=== PATIENT | female | born 1945 | race Caucasian/White ===

== ENCOUNTER 2016-11-13 15:58 | Observation (INO) ==
--- NOTE | 2016-11-13 16:28 | Emergency Department Note ---
Disposition Clinical Impression: Congestive heart failure, Elevated troponin Disposition: Admitted As Inpatient SOB HPI - General Chief Complaint: ED Shortness of Breath/Dyspnea Stated Complaint: Possible Pneumonia r/o Time Seen by Provider: 11/13/16 16:15 Source: patient Mode of arrival: wheelchair Limitations: no limitations, age Nursing Notes Reviewed: Yes Vital Signs Reviewed: Yes - History of Present Illness Patient presents with 7 hour history of chest pain midsternal in nature when she takes a deep breath with no radiation no shortness of breath cough fever or chills Pt Subjective Complaint: shortness of breath Onset (ago): hour(s) (7) Context: recent illness Severity: mild Consistency/Duration: constant Improves with: nothing Worsens with: nothing Cough present: No - Related Data Home Medications Medication Instructions Recorded Confirmed Albuterol Sulfate [Albuterol 2 puff IH Q4HR PRN 11/04/14 09/14/16 Inhaler] Budesonide/Formoterol 160/4.5 2 puff IH BIDR 11/04/14 09/14/16 [Symbicort 160/4.5] Duloxetine HCl [Cymbalta] 60 mg PO DAILY 11/04/14 09/14/16 Gabapentin [Neurontin] 300 mg PO TID 11/04/14 09/14/16 Nitroglycerin [Nitrostat] 0.4 mg SL Q5M PRN 11/04/14 09/14/16 Fenofibrate Nanocrystallized 145 mg PO DAILY 08/12/15 09/14/16 [Tricor] Omeprazole [PriLOSEC] 40 mg PO BID 10/08/15 09/14/16 Lisinopril [Zestril] 20 mg PO BID 09/11/16 09/14/16 Metoprolol XL (24 HR) Succ [Toprol 50 mg PO DAILY 09/11/16 09/14/16 Xl] Oxycodone HCl [Oxaydo] 5 mg PO Q6H PRN 09/14/16 09/14/16 Previous Rx's Medication Instructions Recorded Aspirin 81 mg PO DAILY #30 tab.chew 06/26/15 Atorvastatin [Lipitor] 40 mg PO HS #30 tablet 06/26/15 Acetaminophen [8 Hour] 650 mg PO Q8H PRN #30 tablet.er 09/12/16 HYDROcodone/Acet 5/325 mg [[place] 1 tab PO Q4HR PRN #14 tab 09/12/16 5-325 mg] Isosorbide MONOnitrate (24 HR) 30 mg PO DAILY #30 tab 09/15/16 [Imdur] Lidocaine Patch [Lidoderm 5% patch] 1 each TP DAILY #30 patch 09/15/16 Nicotine Patch [Nicoderm] 21 mg TD DAILY #30 patch 09/15/16 amLODIPine [Norvasc] 10 mg PO DAILY #60 tab 09/15/16 predniSONE [PredniSONE] 40 mg PO DAILY #4 tablet 09/15/16 Allergies Allergy/AdvReac Type Severity Reaction Status Date / Time Erythromycin Base Allergy Vomiting Verified 11/13/16 18:58 Penicillins [PCN] Allergy Rash Verified 11/13/16 18:58 codeine AdvReac Nausea Verified 11/13/16 18:58 indapamide [From Lozol] AdvReac See Verified 11/13/16 18:58 Comments All systems ED: reviewed and negative except as stated. Review of Systems: As Per HPI Constitutional: Denies: fever, chills, weakness, weight change Eyes: Denies: eye pain, eye discharge, vision change ENT ED: Denies: ear pain, throat pain, dental pain, hearing loss, epistaxis, congestion, dysphagia Cardiovascular: Denies: chest pain, palpitations, dyspnea on exertion, edema, syncope Respiratory: Reports: cough, dyspnea, wheezes Gastrointestinal: Denies: abdominal pain, nausea, vomiting, diarrhea, constipation, hematemesis, melena, hematochezia Genitourinary: Denies: dysuria, frequency, hematuria, discharge Musculoskeletal: Denies: back pain, neck pain, arthralgia, myalgia Integumentary: Denies: rash, abrasion, lesions Neurological: Denies: headache, weakness, numbness, paresthesias, confusion, abnormal gait, vertigo Psychiatric: Denies: anxiety, depression, suicidal thoughts, homicidal thoughts , auditory hallucinations, visual hallucinations Endocrine: Denies: fatigue Past Medical History - Past Medical History Source: patient, nursing notes reviewed Medical history: Reports: cardiomyopathy, COPD, coronary artery disease, diabetes, GERD, GI bleed, hyperlipidemia, hypertension, myocardial infarction, peripheral artery disease, renal disease Surgical history: Reports: angioplasty/stent, appendectomy, hysterectomy, orthopedic, other Psychiatric history: Reports: depression ISSUING OPERATOR history: Reports: no ISSUING OPERATOR history - Social History Smoking Status: Current every day smoker Smokeless Tobacco Status: No Alcohol use: Reports: none Drug use: Reports: none Physical Exam - General Limitations: age General appearance: alert - Head Head exam: atraumatic, normocephalic, normal inspection - Eye Eye exam: Present: normal appearance, PERRL, EOMI - ENT ENT exam: normal exam, normal oropharynx, mucous membranes moist - Neck Neck exam: Present: normal inspection, full ROM, trachea midline - Chest Chest inspection: Present: normal inspection, symmetric chest wall rise - Respiratory Respiratory exam: Present: wheezes, other (Rhonchi and a loose cough noted.). Absent: normal lung sounds bilaterally, respiratory distress, accessory muscle use, prolonged expiratory phase - Cardiovascular Cardiovascular exam: Present: regular rate, normal rhythm, normal heart sounds - Abdominal Exam Abdominal exam: Present: soft - Extremities Exam Extremities exam: Present: normal inspection - Back Exam Back exam: Present: normal inspection - Neurological Exam Neurological exam: Present: alert, oriented X3 - Psychiatric Psychiatric exam: Present: normal affect, normal mood - Skin Skin exam: Present: warm, dry, intact Course Vital Signs Temperature 99 F 11/13/16 16:00 Pulse Rate 96 11/13/16 16:00 Respiratory Rate 20 11/13/16 16:00 Blood Pressure 167/101 11/13/16 16:00 O2 Sat by Pulse Oximetry 100 11/13/16 16:00 Temperature 98.4 F 11/13/16 18:58 Pulse Rate 98 11/13/16 18:58 Respiratory Rate 18 11/13/16 18:58 Blood Pressure 179/97 11/13/16 18:58 O2 Sat by Pulse Oximetry 100 11/13/16 18:58 Oxygen Delivery Oxygen Delivery Room Air Shortness of Breath/Dyspnea - Lab Data Result diagrams: 11/13/16 16:51 11/13/16 16:51 Lab Results 11/13/16 11/13/16 11/13/16 Range/Units 16:51 16:51 16:51 WBC 9.0 (4.3-11.1) K/mcL RBC 3.40 L (3.82-4.97) M/mcL Hgb 9.1 L (11.5-15.4) g/dL Hct 27.7 L (35.3-44.9) % MCV 81.5 L D (83.0-100.0) fL MCH 26.8 L (28.0-33.3) pg MCHC 32.9 (31.6-35.5) g/dL RDW 14.5 (11.5-14.5) % Plt Count 326 (140-400) K/mcL MPV 10.3 (9.4-12.4) fL VBG Lactic Acid (0.5-2.2) mmol/L Sodium 139 (136-145) mEq/L Potassium 3.7 (3.5-4.5) mEq/L Chloride 107 (98-109) mEq/L Carbon Dioxide 20 (19-29) mEq/L BUN 24 H (7-20) mg/dL Creatinine 1.90 H (0.57-1.11) mg/dL Est GFR ( Amer) 32 L (> 60) Est GFR (Non-Af Amer) 26 L (> 60) BUN/Creatinine Ratio 13 (6-26) Glucose 118 H (70-99) mg/dL POC Glucose (58-89) Calculated Osmolality 293 (280-300) Calcium 9.1 (8.6-10.8) mg/dL Total Bilirubin 0.4 (0.2-1.2) mg/dL AST 14 (5-34) Units/L ALT 7 (0-55) Units/L Alkaline Phosphatase 123 (38-126) Units/L Troponin I (0-0.03) ng/mL B-Natriuretic Peptide 2460 H (0-100) pg/mL Serum Total Protein 6.5 (6.0-8.3) g/dL Albumin 2.8 L (3.5-5.0) g/dL Globulin 3.7 H (2.4-3.5) g/dL Albumin/Globulin Ratio 0.8 L (1.1-2.2) 11/13/16 11/13/16 11/13/16 Range/Units 16:51 16:51 18:27 WBC (4.3-11.1) K/mcL RBC (3.82-4.97) M/mcL Hgb (11.5-15.4) g/dL Hct (35.3-44.9) % MCV (83.0-100.0) fL MCH (28.0-33.3) pg MCHC (31.6-35.5) g/dL RDW (11.5-14.5) % Plt Count (140-400) K/mcL MPV (9.4-12.4) fL VBG Lactic Acid 1.7 (0.5-2.2) mmol/L Sodium (136-145) mEq/L Potassium (3.5-4.5) mEq/L Chloride (98-109) mEq/L Carbon Dioxide (19-29) mEq/L BUN (7-20) mg/dL Creatinine (0.57-1.11) mg/dL Est GFR ( Amer) (> 60) Est GFR (Non-Af Amer) (> 60) BUN/Creatinine Ratio (6-26) Glucose (70-99) mg/dL POC Glucose 137 H (58-89) Calculated Osmolality (280-300) Calcium (8.6-10.8) mg/dL Total Bilirubin (0.2-1.2) mg/dL AST (5-34) Units/L ALT (0-55) Units/L Alkaline Phosphatase (38-126) Units/L Troponin I 0.08 H* (0-0.03) ng/mL B-Natriuretic Peptide (0-100) pg/mL Serum Total Protein (6.0-8.3) g/dL Albumin (3.5-5.0) g/dL Globulin (2.4-3.5) g/dL Albumin/Globulin Ratio (1.1-2.2) 11/13/16 Range/Units 18:28 WBC (4.3-11.1) K/mcL RBC (3.82-4.97) M/mcL Hgb (11.5-15.4) g/dL Hct (35.3-44.9) % MCV (83.0-100.0) fL MCH (28.0-33.3) pg MCHC (31.6-35.5) g/dL RDW (11.5-14.5) % Plt Count (140-400) K/mcL MPV (9.4-12.4) fL VBG Lactic Acid (0.5-2.2) mmol/L Sodium (136-145) mEq/L Potassium (3.5-4.5) mEq/L Chloride (98-109) mEq/L Carbon Dioxide (19-29) mEq/L BUN (7-20) mg/dL Creatinine (0.57-1.11) mg/dL Est GFR ( Amer) (> 60) Est GFR (Non-Af Amer) (> 60) BUN/Creatinine Ratio (6-26) Glucose (70-99) mg/dL POC Glucose 135 H (58-89) Calculated Osmolality (280-300) Calcium (8.6-10.8) mg/dL Total Bilirubin (0.2-1.2) mg/dL AST (5-34) Units/L ALT (0-55) Units/L Alkaline Phosphatase (38-126) Units/L Troponin I (0-0.03) ng/mL B-Natriuretic Peptide (0-100) pg/mL Serum Total Protein (6.0-8.3) g/dL Albumin (3.5-5.0) g/dL Globulin (2.4-3.5) g/dL Albumin/Globulin Ratio (1.1-2.2) - EKG Data EKG attestation: Yes I reviewed and interpreted this EKG. EKG results narrative: EKG shows sinus rhythm with LVH and nonspecific ST changes rate of 92 bpm SD interval 161 ms intervals and axes are normal per my interpretation
[2016-11-13] MEDS ORDERED: Ipratropium/Albuterol Neb 3 ML IH ONE (16:30)
[2016-11-13 17:03] LABS: Hematocrit 27.7 % (35.3-44.9); Hemoglobin 9.1 g/dL (11.5-15.4); Mean Corpuscular HGB Conc 32.9 g/dL (31.6-35.5); Mean Corpuscular Hemoglobin 26.8 pg (28.0-33.3); Mean Corpuscular Volume 81.5 fL (83.0-100.0); Mean Platelet Volume 10.3 fL (9.4-12.4); Platelet Count 326 K/mcL (140-400); Red Cell Distribution Width 14.5 % (11.5-14.5)
[2016-11-13 17:15] LABS: Albumin 2.8 g/dL (3.5-5.0); Albumin/Globulin Ratio 0.8 (1.1-2.2); Bilirubin,Total 0.4 mg/dL (0.2-1.2); Calcium 9.1 mg/dL (8.6-10.8); Globulin 3.7 g/dL (2.4-3.5); Potassium 3.7 mEq/L (3.5-4.5); Total Protein 6.5 g/dL (6.0-8.3)
[2016-11-13] MEDS ORDERED: Furosemide 40 MG/4 ML VIAL IVP ONE (17:22)
[2016-11-13] MEDS ORDERED: Aspirin 81 MG TAB.CHEW PO STA (18:03)
[2016-11-13] MEDS ORDERED: *HR* OxyCODONE Immed Rel 5 MG TABLET PO PRN (18:52)
[2016-11-13] MEDS ORDERED: Acetaminophen 325 MG TABLET PO PRN (18:52)
[2016-11-13] MEDS ORDERED: Nitroglycerin 0.4 MG TAB.SUBL SL PRN (18:52)
[2016-11-13] MEDS ORDERED: *HR* HYDROcodone/Acet 5/325 mg TABLET PO PRN (18:52)
[2016-11-13] MEDS ORDERED: traZODone 50 MG TABLET PO PRN (19:06)
[2016-11-13] MEDS ORDERED: ALPRAZolam 0.5 MG TABLET PO PRN (19:06)
[2016-11-13] MEDS: Lisinopril 20 MG TABLET PO SCH (21:55)
[2016-11-13] MEDS: Gabapentin 300 MG CAPSULE PO SCH (21:55)
[2016-11-14] MEDS: Budesonide/Formoterol 160/4.5 MDI IH SCH ×3 (00:17→21:12)
[2016-11-14] MEDS: Gabapentin 300 MG CAPSULE PO SCH ×3 (08:52→22:02)
[2016-11-14] MEDS: Nicotine 21 MG PATCH.TD24 TD SCH (08:52)
[2016-11-14] MEDS: Fenofibrate 54 MG TABLET PO SCH (08:52)
[2016-11-14] MEDS: amLODIPine 5 MG TABLET PO SCH (08:52)
[2016-11-14] MEDS: Metoprolol XL (24 HR) Succ 50 MG TAB.ER.24H PO SCH (08:53)
[2016-11-14] MEDS: predniSONE 20 MG TABLET PO SCH (08:53)
[2016-11-14] MEDS: Lisinopril 20 MG TABLET PO SCH ×2 (08:53→22:02)
[2016-11-14] MEDS ORDERED: Isosorbide MONOnitrate (24 HR) 30 MG TAB.ER.24H PO SCH (09:00)
--- NOTE | 2016-11-14 11:21 | Internal Med History&Physical ---
Date of Encounter: 11/14/16 Time of Encounter: 10:40 Assessment and Plan (1) Dyspnea Current visit: Yes Status: Acute Suspect multifactorial with both COPD and CHF contributing. She will receive IV diuretics and increased isosorbide for heart failure. Will recheck labs in a.m. Qualifiers: Dyspnea type: shortness of breath Qualified Code(s): R06.02 - Shortness of breath; R06.00 - Dyspnea, unspecified; R06.01 - Orthopnea (2) Elevated troponin Current visit: Yes Status: Acute Suspect troponin leak from demand ischemia. We will restart home medications and increase isosorbide as per above. (3) Anemia Current visit: No Status: Acute Will order anemia testing today. Qualifiers: Anemia type: unspecified type Qualified Code(s): D64.9 - Anemia, unspecified Internal Medicine - H&P: HPI Chief complaint: Dyspnea Admitted From: Home Plans for Post Hospital Care: Home History of present illness: Ms. Gutiérrez is a 70 year old female who was sent to emergency room from her PCP office after presenting there with increasing dyspnea over the past 4-5 days. He is evaluated in emergency room and felt to have exacerbation of heart failure. She was admitted to [facility] for ongoing care needs. She admits she quit taking all of her home medications approximately one week ago. She reports she had "no energy" and discontinued them to see if she would get "more energy". She did not tell her PCP that she had quit taking her medications. Her cardiac history is significant for hypertension. She has known ASHD and had 2 stents placed in the RCA in 2009 following an DE. Heart catheter January 2015 showed 80% stenosis in the proximal circumflex and 70% stenosis in the OMB. LVEF was 45%. No significant valvular abnormalities were noted. PCI of LCx was recommended once melena resolved. She was evaluated by cardiology August 2016 for elevated troponin during an [facility] hospitalization. It was felt she had troponin leak from demand ischemia and medical therapy was recommended. An echocardiogram 09/14/2016 showed LVEF of 50-55% with moderate LV diastolic dysfunction, mild MR, borderline anterior mitral valve leaflet prolapse, and mild TR. She claims she has a left renal artery stent. She is had renal artery duplex studies done January 2015 which showed 50-75% stenosis in the right renal artery. She does not have known DVT or pulmonary embolus. Past Med Surg Social Fam HX - Past Medical History Medical history: cardiomyopathy, COPD, coronary artery disease, diabetes, GERD, GI bleed, hyperlipidemia, hypertension, myocardial infarction, peripheral artery disease, renal disease Psychiatric history: depression - Past Surgical History Surgical History: angioplasty/stent, appendectomy, hysterectomy, orthopedic, other - Social History Smoking Status: Current every day smoker Smokeless Tobacco Status: No Alcohol use: none Drug use: none - Family History Father Adopted: No Family Member Ethnicity: Non- Living Status: Hx Family Cardiac Disorders: Yes (heart disease and heart attack) Hx Family Respiratory Disorders: Yes Hx Family Cancer: Yes (Lung cancer) Hx Family GI Disorders: No Hx Family Endocrine Disorder: Yes Hx Family Neuromuscular Disorders: No Hx Family Neurologic Disorders: No Hx Family HEENT Disorders: No Hx Family Autoimmune Disorders: No Mother Adopted: No Living Status: Hx Family Cardiac Disorders: Yes Hx Family Respiratory Disorders: Yes Hx Family Cancer: No Hx Family GI Disorders: Yes Hx Family Endocrine Disorder: Yes (Diabetes) Hx Family Neuromuscular Disorders: No Hx Family Neurologic Disorders: No Hx Family HEENT Disorders: No Hx Family Autoimmune Disorders: No Internal Medicine - H&P: Meds Albuterol Sulfate [Albuterol Inhaler] 2 puff IH Q4HR PRN 11/04/14 [History] Budesonide/Formoterol 160/4.5 [Symbicort 160/4.5] 2 puff IH BIDR 11/04/14 [ History] Duloxetine HCl [Cymbalta] 60 mg PO DAILY 11/04/14 [History] Gabapentin [Neurontin] 300 mg PO TID 11/04/14 [History] Nitroglycerin [Nitrostat] 0.4 mg SL Q5M PRN 11/04/14 [History] Aspirin 81 mg PO DAILY #30 tab.chew 06/26/15 [Rx] Atorvastatin [Lipitor] 40 mg PO HS #30 tablet 06/26/15 [Rx] Fenofibrate Nanocrystallized [Tricor] 145 mg PO DAILY 08/12/15 [History] Omeprazole [PriLOSEC] 40 mg PO BID 10/08/15 [History] Lisinopril [Zestril] 20 mg PO BID 09/11/16 [History] Metoprolol XL (24 HR) Succ [Toprol Xl] 50 mg PO DAILY 09/11/16 [History] Acetaminophen [8 Hour] 650 mg PO Q8H PRN #30 tablet.er 09/12/16 [Rx] HYDROcodone/Acet 5/325 mg [[place] 5-325 mg] 1 tab PO Q4HR PRN #14 tab 09/12/16 [ Rx] Oxycodone HCl [Oxaydo] 5 mg PO Q6H PRN 09/14/16 [History] Isosorbide MONOnitrate (24 HR) [Imdur] 30 mg PO DAILY #30 tab 09/15/16 [Rx] Lidocaine Patch [Lidoderm 5% patch] 1 each TP DAILY #30 patch 09/15/16 [Rx] Nicotine Patch [Nicoderm] 21 mg TD DAILY #30 patch 09/15/16 [Rx] amLODIPine [Norvasc] 10 mg PO DAILY #60 tab 09/15/16 [Rx] predniSONE [PredniSONE] 40 mg PO DAILY #4 tablet 09/15/16 [Rx] 3 Allergy/AdvReac Type Severity Reaction Status Date / Time Erythromycin Base Allergy Vomiting Verified 11/13/16 18:58 Penicillins [PCN] Allergy Rash Verified 11/13/16 18:58 codeine AdvReac Nausea Verified 11/13/16 18:58 indapamide [From Lozol] AdvReac See Verified 11/13/16 18:58 Comments All Systems PM: A 10-system review of systems was performed and is negative for pertinent findings except as documented above in the HPI. Review of systems: Review of systems from her August 2015 [facility] admission were reviewed and revised as below. Gen.: Her weight has remained stable at approximately 54 kg from August 2015 admission. Cardiovascular: As per history of present illness Respiratory: She has smoked since age 9 up to 1.5 pack per day. She has been diagnosed with COPD/emphysema. She has home oxygen but states she has only worn it regularly for the past few days. Most recent chest CT was 11/24/2015 which showed stable findings. GI: She has GERD but denies disorders of her liver gallbladder or exocrine pancreas. She had colonoscopy 07/09/2015 which showed dark red blood throughout the colon up to the cecum. An old clip was seen in the cecum from previous endoscopy. A report states she had multiple AVMs seen in the right colon on a previous colonoscopy. : She has CKD stage III and follows with a [facility] scarfer. She denies other kidney or bladder disorders Neurologic: She denies large distribution strokes or seizures. She does have diabetic peripheral neuropathy Endocrine: She was diagnosed with DM 2 approximately 2007. She denies thyroid disease or hyperlipidemia Hematology/oncology: She has anemia and has been treated for iron deficiency in the past. Anemia workup done 11/11/2015 showed transferrin saturation 11%, iron 48, and folate 5.8. She denies internal malignancies. Psychiatric: She has depression but no significant anxiety or other mental health issues Musculoskeletal: She has DJD but no known gout or osteoporosis. She reports she has had left wrist fracture and bilateral hip replacements in the past. She is also had surgery on her left knee. - Constitutional Vitals: Temp Pulse Resp BP Pulse Ox 97.6 F 66 16 123/73 99 11/14/16 10:23 11/14/16 10:23 11/14/16 10:23 11/14/16 10:23 11/14/16 10:23 Exam: Gen.: She is a well-developed well-nourished female sitting in bed who appears in no acute distress. She states her dyspnea has significantly improved and she denies chest pain. HEENT: Head is atraumatic and normocephalic. Eyes: EOMI. There is no scleral icterus. Mouth: Mucosa is moist. Neck: Supple and nontender. There is no thyromegaly or adenopathy noted. Heart: Regular without murmurs gallops or ectopics. Lungs: No wheezes or crackles are heard. Abdomen: Soft and nontender. No masses or guarding are noted. Extremities: There is no cyanosis edema or clubbing noted. Dorsalis pedis and posttibial pulses are trace palpable bilaterally. Her feet are warm to touch. Neurologic: Mental status: She is talkative and a good historian. Cranial nerves: Smile is symmetric. Forehead wrinkles bilaterally. Tongue protrudes midline. EOMI. Motor: There is no pronator drift. Cerebellar: Finger to nose is intact bilaterally. Skin: Warm and dry Internal Med - H&P Results - Labs CBC & Chem 7: 11/13/16 16:51 11/13/16 16:51 Labs: Cardiac Enzymes 11/13/16 11/14/16 Range/Units 22:50 05:15 Troponin I 0.10 H* 0.14 H* (0-0.03) ng/mL - VTE Reasons for not Prescribing Prophylaxis: Treatment not Indicated - Low risk for VTE
[2016-11-14] MEDS: Furosemide 40 MG/4 ML VIAL IVP SCH (12:29)
--- NOTE | 2016-11-14 18:10 | Electrocardiograph Report ---
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
--- NOTE | 2016-11-14 18:18 | Electrocardiograph Report ---
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
[2016-11-14 18:43] LABS: % Iron Saturation 14 % (15-50); Iron 38 mcg/dL (50-170); Transferrin 196 mg/dL (180-382)
[2016-11-14 18:45] LABS: Ferritin 109 ng/ml (5-204)
[2016-11-14 18:57] LABS: Folate 11.2 ng/mL (7.0-31.4)
[2016-11-15 06:51] VITALS: BP 111/71
[2016-11-15] MEDS: Nicotine 21 MG PATCH.TD24 TD SCH (08:18)
[2016-11-15] MEDS: Fenofibrate 54 MG TABLET PO SCH (08:19)
[2016-11-15] MEDS: predniSONE 20 MG TABLET PO SCH (08:20)
[2016-11-15] MEDS: Gabapentin 300 MG CAPSULE PO SCH ×2 (08:20→15:23)
[2016-11-15] MEDS: Lisinopril 20 MG TABLET PO SCH (08:20)
[2016-11-15] MEDS: amLODIPine 5 MG TABLET PO SCH (08:20)
[2016-11-15] MEDS: Metoprolol XL (24 HR) Succ 50 MG TAB.ER.24H PO SCH (08:20)
[2016-11-15] MEDS ORDERED: Isosorbide MONOnitrate (24 HR) 60 MG TAB.ER.24H PO SCH (09:00)
--- NOTE | 2016-11-15 09:52 | Discharge Summary ---
Date of Encounter: 11/15/16 Time of Encounter: 09:45 - Discharge Diagnosis (1) Dyspnea Priority: Primary Status: Acute Qualifiers: Dyspnea type: shortness of breath Qualified Code(s): R06.02 - Shortness of breath; R06.00 - Dyspnea, unspecified; R06.01 - Orthopnea (2) Elevated troponin Priority: Secondary Status: Acute (3) Anemia Priority: Secondary Status: Acute Qualifiers: Anemia type: unspecified type Qualified Code(s): D64.9 - Anemia, unspecified - Discharge Medications Prescriptions: Bumetanide [Bumex] 0.5 mg PO DAILY #15 tablet Isosorbide MONOnitrate (24 HR) [Imdur] 60 mg PO DAILY #30 tab.er.24h Potassium Chloride 10 meq PO DAILY #30 tab.er.prt Home Medications: Albuterol Sulfate [Albuterol Inhaler] 2 puff IH Q4HR PRN 11/04/14 [History] Budesonide/Formoterol 160/4.5 [Symbicort 160/4.5] 2 puff IH BIDR 11/04/14 [ History] Duloxetine HCl [Cymbalta] 60 mg PO DAILY 11/04/14 [History] Gabapentin [Neurontin] 300 mg PO TID 11/04/14 [History] Nitroglycerin [Nitrostat] 0.4 mg SL Q5M PRN 11/04/14 [History] Aspirin 81 mg PO DAILY #30 tab.chew 06/26/15 [Rx] Atorvastatin [Lipitor] 40 mg PO HS #30 tablet 06/26/15 [Rx] Fenofibrate Nanocrystallized [Tricor] 145 mg PO DAILY 08/12/15 [History] Omeprazole [PriLOSEC] 40 mg PO BID 10/08/15 [History] Lisinopril [Zestril] 20 mg PO BID 09/11/16 [History] Metoprolol XL (24 HR) Succ [Toprol Xl] 50 mg PO DAILY 09/11/16 [History] Acetaminophen [8 Hour] 650 mg PO Q8H PRN #30 tablet.er 09/12/16 [Rx] HYDROcodone/Acet 5/325 mg [[place] 5-325 mg] 1 tab PO Q4HR PRN #14 tab 09/12/16 [ Rx] Oxycodone HCl [Oxaydo] 5 mg PO Q6H PRN 09/14/16 [History] Lidocaine Patch [Lidoderm 5% patch] 1 each TP DAILY #30 patch 09/15/16 [Rx] Nicotine Patch [Nicoderm] 21 mg TD DAILY #30 patch 09/15/16 [Rx] amLODIPine [Norvasc] 10 mg PO DAILY #60 tab 09/15/16 [Rx] Bumetanide [Bumex] 0.5 mg PO DAILY #15 tablet 11/15/16 [Rx] Isosorbide MONOnitrate (24 HR) [Imdur] 60 mg PO DAILY #30 tab.er.24h 11/15/16 [ Rx] Potassium Chloride 10 meq PO DAILY #30 tab.er.prt 11/15/16 [Rx] Allergies/Adverse Reactions: 3 Allergy/AdvReac Type Severity Reaction Status Date / Time Erythromycin Base Allergy Vomiting Verified 11/13/16 18:58 Penicillins [PCN] Allergy Rash Verified 11/13/16 18:58 codeine AdvReac Nausea Verified 11/13/16 18:58 indapamide [From Lozol] AdvReac See Verified 11/13/16 18:58 Comments Procedures/tests Complete & Pending: Procedures Performed prior 72 hours Category Date Time Status ECG 12 lead ECG [ECG] Routine Y 11/14/16 11:14 Completed Date of admission: 11/13/16 18:30 Primary care physician: Tyler Pino MD - Patient Status Disposition: Home, Self-Care Functional capacity at discharge: independent ambulation Overall status at discharge: patient is progressing back to baseline - Discharge Instructions Follow Up With: Tyler Pino MD [Primary Care Provider] - 1 week - Diet and Activity Activity: resume usual activities as tolerated, wear oxygen at all times Diet: advance to your usual diet Hospital course: Ms. Gutiérrez is a 70 year old female who was sent to emergency room from her PCP office after presenting there with increasing dyspnea over the past 4-5 days. He is evaluated in emergency room and felt to have exacerbation of heart failure. She was admitted to [facility] floor for ongoing care needs. Initial orders were written by the emergency room physician. I saw her November 14 and performed the history and physical. She was given IV Lasix. Isosorbide was increased to 60 mg daily. BN peptide decreased to 1344 by the day of discharge. Her dyspnea and chest pain completely resolved. She had a rise in her troponin to 0.33. I spoke with [facility]ology about her case. The assembler steam and gas turbine stated she was not certain if a heart catheter was needed or would be done if the patient was transferred. Since patient was asymptomatic I elected to proceed with medical care at this time. Her PCP Dr. Pino can pursue further cardiology intervention as needed. Anemia testing showed iron 38, transferrin saturation 14%, transferrin 196, ferritin 109, B12 508, folate 11.2. Her PCP can initiate ferrous sulfate as needed. On November 15 she felt back to her baseline and stable for discharge home. She stated she would resume her home medications that she had abruptly discontinued one week earlier. I added Bumex and potassium and increased her dose of isosorbide. She will follow with Dr. Pino within 1 week. - Time Spent with Patient Total time spent providing and/or coordinating discharge services: - Constitutional Vitals: Temp Pulse Resp BP Pulse Ox 98.0 F 76 18 111/71 94 11/15/16 06:48 11/15/16 06:48 11/15/16 06:48 11/15/16 06:48 11/15/16 06:48 - VTE Reasons for not Prescribing Prophylaxis: Treatment not Indicated - Low risk for VTE
[2016-11-15] MEDS: Budesonide/Formoterol 160/4.5 MDI IH SCH (10:19)
[2016-11-15] MEDS: Furosemide 40 MG/4 ML VIAL IVP SCH (15:21)
== END 2016-11-15 16:05 | disposition home or self-care (01) ==
LOC: INPPIK 15:58 → EMEROOPIK 15:58 → INPPIK 18:43
PROVIDERS: ADMIT Internal Medicine; ATTEND Internal Medicine

== ENCOUNTER 2017-01-22 18:41 | Inpatient (IN) ==
[2017-01-22] MEDS ORDERED: Albuterol 2.5 MG/3 ML NEBULIZER IH PRN (18:56)
[2017-01-22] MEDS ORDERED: Nitroglycerin 0.4 MG TAB.SUBL SL PRN (18:56)
[2017-01-22] MEDS ORDERED: *HR* Dextrose 50 % in Water (Syg) 50 ML SYRINGE ONE (19:41)
[2017-01-23] MEDS: Gabapentin 300 MG CAPSULE PO SCH ×4 (00:04→21:02)
[2017-01-23] MEDS ORDERED: *HR* Dextrose 50 % in Water (Syg) 50 ML SYRINGE IVP ONE ×2 (02:41→11:48)
[2017-01-23] MEDS ORDERED: *HR* Dextrose 50 % in Water (Syg) 50 ML SYRINGE ONE (02:42)
[2017-01-23] MEDS: Fenofibrate 54 MG TABLET PO SCH (07:55)
[2017-01-23] MEDS: Isosorbide MONOnitrate (24 HR) 60 MG TAB.ER.24H PO SCH (07:55)
[2017-01-23] MEDS: Metoprolol XL (24 HR) Succ 50 MG TAB.ER.24H PO SCH (07:55)
[2017-01-23 08:07] LABS: Basophils # 0.1 K/mcL (0.0-0.2); Basophils % 0.4 %; Eosinophils # 0.5 K/mcL (0.0-0.6); Eosinophils % 3.3 %; Hematocrit 23.8 % (35.3-44.9); Hemoglobin 7.4 g/dL (11.5-15.4); Immature Granulocytes % 0.6 % (0-4); Lymphocytes % 11.6 %; Mean Corpuscular HGB Conc 31.1 g/dL (31.6-35.5); Mean Corpuscular Hemoglobin 26.8 pg (28.0-33.3); Mean Corpuscular Volume 86.2 fL (83.0-100.0); Mean Platelet Volume 9.2 fL (9.4-12.4); Monocytes # 1.7 K/mcL (0.0-1.3); Monocytes % 10.6 %; Neutrophils # 11.7 K/mcL (1.6-8.9); Platelet Count 425 K/mcL (140-400); Red Blood Count 2.76 M/mcL (3.82-4.97); Segmented Neutrophils % 73.5 %
[2017-01-23 08:14] LABS: Lymphocytes # 1.8 K/mcL (0.6-4.6)
[2017-01-23] MEDS ORDERED: Lisinopril 20 MG TABLET PO SCH (09:00)
[2017-01-23 09:05] LABS: Calcium 8.5 mg/dL (8.6-10.8); Potassium 5.5 mEq/L (3.5-4.5)
--- NOTE | 2017-01-23 11:21 | Internal Med History&Physical ---
Date of Encounter: 01/23/17 Time of Encounter: 11:00 Assessment and Plan (1) Hypoglycemia Current visit: No Status: Acute Lantus and Amaryl have been held and IV dextrose has been started. Blood sugars will be monitored. (2) CKD (chronic kidney disease), stage IV Current visit: No Status: Chronic We will monitor renal indices. (3) Anemia Current visit: No Status: Chronic We will order anemia testing. Qualifiers: Anemia type: other cause Other causes of anemia: chronic disease, other Qualified Code(s): D63.8 - Anemia in other chronic diseases classified elsewhere Internal Medicine - H&P: HPI Chief complaint: Confusion, hypoglycemia, Admitted From: Emergency Dept Plans for Post Hospital Care: Home History of present illness: Ms. Gutiérrez is a 71 year old female who was transferred from [facility] overflow to [facility] for admission after she presented there with hypoglycemia and confusion/ hallucinations. The emergency room report from [facility] stated family observed she had been acting abnormally for the last 2-3 days with hallucinations (talking to people not in the room). Blood sugar was 43 when squad arrived. An amp of D50 was given IV and she was transported to [facility] emergency room. She was given additional IV dextrose but because of Lantus and Amaryl use it was felt best to admit her for safety and ongoing care needs. She is obtunded at this time and can not give any history. She was hospitalized at [facility] October 2016. At that time she stated she was diagnosed with DM 2 approximately 2007. Hemoglobin A1c was 6.4% on 01/15/2017. She has no known thyroid disease or hyperlipidemia. Past Med Surg Social Fam HX - Past Medical History Medical history: cardiomyopathy, COPD, coronary artery disease, diabetes, GERD, GI bleed, hyperlipidemia, hypertension, myocardial infarction, peripheral artery disease, renal disease Psychiatric history: depression - Past Surgical History Surgical History: angioplasty/stent, appendectomy, hysterectomy, orthopedic, other - Social History Smoking Status: Current every day smoker Packs per day: 0.5 Smokeless Tobacco Status: No Alcohol use: none Drug use: none - Family History Father Adopted: No Family Member Ethnicity: Non- Living Status: Hx Family Cardiac Disorders: Yes (heart disease and heart attack) Hx Family Respiratory Disorders: Yes Hx Family Cancer: Yes (Lung cancer) Hx Family GI Disorders: No Hx Family Endocrine Disorder: Yes Hx Family Neuromuscular Disorders: No Hx Family Neurologic Disorders: No Hx Family HEENT Disorders: No Hx Family Autoimmune Disorders: No Mother Adopted: No Family Member Ethnicity: Non- Living Status: Hx Family Cardiac Disorders: Yes Hx Family Respiratory Disorders: Yes Hx Family Cancer: No Hx Family GI Disorders: Yes Hx Family Endocrine Disorder: Yes (Diabetes) Hx Family Neuromuscular Disorders: No Hx Family Neurologic Disorders: No Hx Family HEENT Disorders: No Hx Family Autoimmune Disorders: No Internal Medicine - H&P: Meds Albuterol Sulfate [Albuterol Inhaler] 2 puff IH Q4HR PRN 11/04/14 [History] Nitroglycerin [Nitrostat] 0.4 mg SL Q5M PRN 11/04/14 [History] Albuterol Neb [Proventil Neb] 2.5 mg IH Q6H PRN 11/29/16 [History] Atorvastatin [Lipitor] 40 mg PO HS tablet 12/03/16 [Rx] Omeprazole [PriLOSEC] 20 mg PO DAILY@0630 capsule.dr 12/03/16 [Rx] Oxycodone HCl [Oxaydo] 7.5 mg PO Q6H PRN #7 tablet.orl 12/03/16 [Rx] Amlodipine Besylate 10 mg PO DAILY 01/17/17 [History] Bumetanide 0.5 mg PO DAILY 01/17/17 [History] Clindamycin [Cleocin] 150 mg PO Q6HR #7 capsule 01/17/17 [Rx] Duloxetine HCl [Cymbalta] 60 mg PO DAILY 01/17/17 [History] Esomeprazole Magnesium [Nexium 24Hr] 20 mg PO DAILY 01/17/17 [History] Fenofibrate Nanocrystallized [Tricor] 145 mg PO DAILY 01/17/17 [History] Gabapentin [Neurontin] 300 mg PO TID 01/17/17 [History] Glimepiride [Amaryl] 2 mg PO DAILY 01/17/17 [History] Hydralazine HCl 50 mg PO Q8H 01/17/17 [History] Insulin Glargine,Hum.rec.anlog [Lantus Solostar] 25 unit SQ HS 01/17/17 [History ] Isosorbide MONOnitrate (24 HR) [Imdur] 60 mg PO DAILY 01/17/17 [History] Lisinopril [Zestril] 20 mg PO DAILY 01/17/17 [History] Metoprolol XL (24 HR) Succ [Toprol Xl] 50 mg PO DAILY 01/17/17 [History] OxyCODONE Immed Rel [Roxicodone 5 MG] 5 mg PO Q4HR PRN #24 tablet 01/17/17 [Rx] Potassium Chloride 10 meq PO DAILY 01/17/17 [History] 3 Allergy/AdvReac Type Severity Reaction Status Date / Time Erythromycin Base Allergy Vomiting Verified 01/17/17 13:28 Penicillins [PCN] Allergy Rash Verified 01/17/17 13:28 codeine AdvReac Nausea Verified 01/22/17 09:39 indapamide [From Lozol] AdvReac See Verified 01/17/17 13:28 Comments All Systems PM: A 10-system review of systems was performed and is negative for pertinent findings except as documented above in the HPI. Review of systems: Review of systems from her October 2016 [facility] admission were reviewed and revised as below. Gen.: Her weight has increased from 53.722 kg on 11/15/2016 to 55.792 kg on admission now. Cardiovascular: She has history of hypertension. She has known ASHD and had 2 stents placed in the RCA in 2009 following an UT. Heart catheter January 2015 showed 80% stenosis in the proximal circumflex and 70% stenosis in the OMB. LVEF was 45%. No significant valvular abnormalities were noted. PCI of LCx was recommended once melena resolved. She was evaluated by cardiology August 2016 for elevated troponin during an [facility] hospitalization. It was felt she had troponin leak from demand ischemia and medical therapy was recommended. She was hospitalized October [address] [facility] and troponin was documented to be elevated. I spoke with [facility] cardiology but they could not confirm a repeat heart catheter was indicated and transfer was not made there for further evaluation. An echocardiogram 09/14/2016 showed LVEF of 50-55% with moderate LV diastolic dysfunction, mild MR, borderline anterior mitral valve leaflet prolapse, and mild TR. She claims she has a left renal artery stent. She is had renal artery duplex studies done January 2015 which showed 50-75% stenosis in the right renal artery. She does not have known DVT or pulmonary embolus. Respiratory: She has smoked since age 9 up to 1.5 pack per day. She has been diagnosed with COPD/emphysema. She has home oxygen but has not worn it regularly in the past. Most recent chest CT was 11/24/2015 which showed stable findings. GI: She has GERD but denies disorders of her liver gallbladder or exocrine pancreas. She had colonoscopy 07/09/2015 which showed dark red blood throughout the colon up to the cecum. An old clip was seen in the cecum from previous endoscopy. A report states she had multiple AVMs seen in the right colon on a previous colonoscopy. 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 She denies other kidney or bladder disorders Neurologic: She denies large distribution strokes or seizures. She does have diabetic peripheral neuropathy Endocrine: As per history of present illness Hematology/oncology: She has anemia and has been treated for iron deficiency in the past. Anemia testing October 2016 showed iron 38, transferrin saturation 14%, transferrin 196, ferritin 109, B12 508, folate 11.2. She denied internal malignancies. Psychiatric: She has depression but no significant anxiety or other mental health issues Musculoskeletal: She has DJD but no known gout or osteoporosis. She reports she has had left wrist fracture and bilateral hip replacements in the past. She is also had surgery on her left knee. She had left proximal humerus ORIF surgery 01/17/2017. - Constitutional Vitals: Temp Pulse Resp BP Pulse Ox 97.6 F 83 18 158/76 100 01/23/17 05:40 01/23/17 05:40 01/23/17 05:40 01/23/17 05:40 01/23/17 05:40 Exam: Gen.: She is well-developed well-nourished male lying in bed. She does not respond significantly to voice or light touch HEENT: Head is atraumatic and normal cephalic. Eyes: She has a disconjugate gaze. There is no scleral icterus. Mouth: She does not open her mouth for evaluation Neck: Supple and nontender. There is no thyromegaly or adenopathy noted. Heart: Regular without murmurs gallops or ectopics Lungs: No wheezes or crackles are heard. Abdomen: Soft and nontender. No masses or guarding are noted. Extremities: she has surgical incision with dressing over the left lateral proximal humerus area. The left arm is in an immobilizer device. She has DJD changes of her hands. There is no cyanosis edema or clubbing noted. Dorsalis pedis and posttibial pulses are trace palpable bilaterally. Neurologic: Mental status: She is obtunded and does not respond significantly to voice or light touch. Cranial nerves: Her gaze is disconjugate. She does not make spontaneous facial movements. Motor: I did not move her left arm since it was in the immobilizer. Right arm has weak arm tone on passive range of motion. She does not withdraw her feet significantly to Babinski testing. Her was minimal toe movement on the testing. No further neurologic testing was attempted. Skin: Warm and dry Internal Med - H&P Results - Labs CBC & Chem 7: 01/23/17 07:45 01/23/17 07:45 Labs: Short CBC 01/23/17 Range/Units 07:45 WBC 15.9 H (4.3-11.1) K/mcL Hgb 7.4 L (11.5-15.4) g/dL Hct 23.8 L (35.3-44.9) % Plt Count 425 H (140-400) K/mcL Neutrophils # 11.7 H (1.6-8.9) K/mcL BMP 01/23/17 07:45 Sodium 137 Potassium 5.5 H Chloride 107 Carbon Dioxide 23 BUN 34 H Creatinine 1.47 H Glucose 65 L Calcium 8.5 L
[2017-01-23] MEDS: D5% in Water 1,000 ML IVC SCH ×2 (11:58→21:04)
[2017-01-23 14:25] LABS: Bilirubin,Urine Negative (Negative); Blood,Urine Trace-lysed (Negative); Clarity,Urine Slightly Cloudy (Clear); Color,Urine Light Yellow (Yellow); Glucose,Urine (UA) Normal (Normal); Ketones,Urine Negative (Negative); Leukocyte Esterase,Urine Negative (Negative); Nitrite,Urine Negative (Negative); Protein,Urine 100 mg/dL (Neg-Trace); Urobilinogen,Urine Normal (Normal)
[2017-01-23 14:36] LABS: Amorphous Sediment,Urine Moderate (Few); Bacteria,Urine Moderate per hpf (None-Few); Granular Casts,Urine Few per lpf (None Seen); RBC,Urine 0-3 per hpf (0-3); Squamous Epithelial Cell,Urine Few per lpf (None-Few); WBC,Urine 0-3 per hpf (0-3)
[2017-01-23 14:38] LABS: Amphetamine Screen,Urine Negative ng/mL (Cutoff=1000); Barbiturate Screen,Urine Negative ng/mL (Cutoff=200); Benzodiazepines Screen,Urine Negative ng/mL (Cutoff=200); Cannabinoid Screen,Urine Negative ng/mL (Cutoff = 50); Cocaine Screen,Urine Negative ng/mL (Cutoff= 300); Opiate Screen,Urine Negative ng/mL (Cutoff=300); Phencyclidine Screen,Urine Negative ng/mL (Cutoff=25)
[2017-01-23 16:40] LABS: ABG Base Excess 0 mEq/L (-2 to 3); ABG HCO3 25 mEq/L (21-27); ABG Oxygen Saturation 97 % (95-98); ABG PCO2 45 mmHg (35-45); ABG PH 7.36 pH Units (7.32-7.45); ABG PO2 95 mmHg (85-104); ABG TCO2 27 mEq/L (20-26)
[2017-01-23] MEDS: *HR* OxyCODONE Immed Rel 5 MG TABLET PO PRN (21:03)
[2017-01-24] MEDS: Metoprolol XL (24 HR) Succ 50 MG TAB.ER.24H PO SCH ×2 (03:19→14:16)
[2017-01-24] MEDS: Gabapentin 300 MG CAPSULE PO SCH ×2 (09:28→22:41)
[2017-01-24] MEDS: Isosorbide MONOnitrate (24 HR) 60 MG TAB.ER.24H PO SCH ×2 (09:30→14:16)
[2017-01-24] MEDS: Fenofibrate 54 MG TABLET PO SCH (09:30)
[2017-01-24 10:13] LABS: Hematocrit 23.9 % (35.3-44.9); Hemoglobin 7.4 g/dL (11.5-15.4); Mean Corpuscular Volume 83.9 fL (83.0-100.0); Platelet Count 532 K/mcL (140-400); Red Blood Count 2.85 M/mcL (3.82-4.97); Red Cell Distribution Width 16.5 % (11.5-14.5)
[2017-01-24 10:14] LABS: Basophils # 0.1 K/mcL (0.0-0.2); Basophils % 0.8 %; Eosinophils # 0.6 K/mcL (0.0-0.6); Eosinophils % 4.8 %; Immature Granulocytes % 0.7 % (0-4); Lymphocytes # 1.5 K/mcL (0.6-4.6); Lymphocytes % 11.6 %; Mean Platelet Volume 10.2 fL (9.4-12.4); Monocytes # 1.2 K/mcL (0.0-1.3); Monocytes % 9.6 %; Neutrophils # 9.3 K/mcL (1.6-8.9); Segmented Neutrophils % 72.5 %
[2017-01-24 10:39] LABS: Calcium 8.6 mg/dL (8.6-10.8); Potassium 5.7 mEq/L (3.5-4.5)
--- NOTE | 2017-01-24 11:17 | Internal Med Progress Note ---
Date of Encounter: 01/24/17 Time of Encounter: 11:05 - Assessment and plan (1) Hypoglycemia Current Visit: No Status: Acute Assessment and plan: January 24. Resolved. Remain off Lantus and Amaryl. We will continue with IV fluids and recheck labs in a.m. Anticipate discharge to SNF tomorrow (2) CKD (chronic kidney disease), stage IV Current Visit: No Status: Chronic Assessment and plan: January 24. Will monitor renal indices as needed. (3) Anemia Current Visit: No Status: Chronic Assessment and plan: January 24. Anemia testing is pending. Qualifiers: Anemia type: other cause Other causes of anemia: chronic disease, other Qualified Code(s): D63.8 - Anemia in other chronic diseases classified elsewhere - Subjective Interval history: January 24. She complains of dyspnea but denies pain. - Constitutional Vitals: Temp Pulse Resp BP Pulse Ox 98.3 F 86 18 184/97 99 01/24/17 10:00 01/24/17 10:00 01/24/17 10:00 01/24/17 10:00 01/24/17 10:00 Exam: She is resting comfortably in bed and appears in no significant distress. She is appropriate in conversation. Heart is regular without murmurs gallops or ectopics. Lungs are clear. Extremities show trace edema in the left leg and no edema in the right leg. I reviewed her medications and lab results. Internal Medicine: Result - Labs CBC & Chem 7: 01/24/17 07:20 01/24/17 07:20 Labs: Short CBC 01/24/17 Range/Units 07:20 WBC 12.8 H (4.3-11.1) K/mcL Hgb 7.4 L (11.5-15.4) g/dL Hct 23.9 L (35.3-44.9) % Plt Count 532 H (140-400) K/mcL Neutrophils # 9.3 H (1.6-8.9) K/mcL BMP 01/24/17 07:20 Sodium 130 L D Potassium 5.7 H Chloride 100 Carbon Dioxide 25 BUN 32 H Creatinine 1.54 H Glucose 129 H Calcium 8.6 Urine 01/23/17 Range/Units 14:06 Urine Color Light Yellow (Yellow) Urine Clarity Slightly Cloudy A (Clear) Urine pH 5.0 (5.0-8.0) pH Units Ur Specific [place] 1.010 (1.010-1.025) Urine Protein 100 H (Neg-Trace) mg/dL Urine Glucose (UA) Normal (Normal) mg/dL - ABG Interpretation ABG results: ABG ABG pH 7.36 pH Units (7.32-7.45) 01/23/17 16:36 ABG pCO2 45 mmHg (35-45) 01/23/17 16:36 ABG pO2 95 mmHg (85-104) 01/23/17 16:36 ABG O2 Saturation 97 % (95-98) 01/23/17 16:36 Consult Discharge Plan - Plan Referrals: Ming Brunson MD [Primary Care Provider] - 1 week
[2017-01-24] MEDS: cloNIDine HCl 0.1 MG TABLET PO SCH ×2 (14:16→22:40)
[2017-01-24] MEDS: D5% in Water 1,000 ML IVC SCH (15:06)
[2017-01-24 15:19] LABS: Folate 9.4 ng/mL (7.0-31.4)
[2017-01-24] MEDS: *HR* OxyCODONE Immed Rel 5 MG TABLET PO PRN (22:40)
[2017-01-25] MEDS: *HR* OxyCODONE Immed Rel 5 MG TABLET PO PRN ×2 (03:42→22:25)
[2017-01-25] MEDS: cloNIDine HCl 0.1 MG TABLET PO SCH ×3 (06:07→18:32)
[2017-01-25 07:18] LABS: Basophils # 0.1 K/mcL (0.0-0.2); Basophils % 0.5 %; Eosinophils # 0.4 K/mcL (0.0-0.6); Eosinophils % 2.7 %; Hematocrit 20.6 % (35.3-44.9); Hemoglobin 6.7 g/dL (11.5-15.4); Immature Granulocytes % 0.8 % (0-4); Lymphocytes # 2.1 K/mcL (0.6-4.6); Lymphocytes % 15.6 %; Mean Corpuscular HGB Conc 32.5 g/dL (31.6-35.5); Mean Corpuscular Hemoglobin 26.4 pg (28.0-33.3); Mean Corpuscular Volume 81.1 fL (83.0-100.0); Mean Platelet Volume 9.1 fL (9.4-12.4); Monocytes # 1.1 K/mcL (0.0-1.3); Monocytes % 8.3 %; Neutrophils # 9.5 K/mcL (1.6-8.9); Nucleated Red Blood Cells 0.2 /100 WBC (0); Platelet Count 422 K/mcL (140-400); Red Blood Count 2.54 M/mcL (3.82-4.97); Segmented Neutrophils % 72.1 %
[2017-01-25 07:25] LABS: Calcium 8.2 mg/dL (8.6-10.8); Potassium 5.3 mEq/L (3.5-4.5)
[2017-01-25] MEDS: Metoprolol XL (24 HR) Succ 50 MG TAB.ER.24H PO SCH (08:38)
[2017-01-25] MEDS: Isosorbide MONOnitrate (24 HR) 60 MG TAB.ER.24H PO SCH (08:38)
[2017-01-25] MEDS: Fenofibrate 54 MG TABLET PO SCH (08:39)
[2017-01-25] MEDS: Gabapentin 300 MG CAPSULE PO SCH ×2 (08:39→21:04)
--- NOTE | 2017-01-25 09:25 | Internal Med Progress Note ---
Date of Encounter: 01/25/17 Time of Encounter: 09:20 - Assessment and plan (1) Hypoglycemia Current Visit: No Status: Acute Assessment and plan: January 24. Resolved. Remain off Lantus and Amaryl. We will continue with IV fluids and recheck labs in a.m. Anticipate discharge to SNF tomorrow January 25. Blood sugars are acceptable off medication. Will hold discharge because of anemia and elevated BN peptide (2) CKD (chronic kidney disease), stage IV Current Visit: No Status: Chronic Assessment and plan: January 24. Will monitor renal indices as needed. January 25. Stable (3) Anemia Current Visit: No Status: Chronic Assessment and plan: January 24. Anemia testing is pending. January 25. Hemoglobin has decreased to 6.7. Anemia testing showed iron 21, transferrin saturation 6%, transferrin 243, ferritin 123, B12 800, and folate 9.4. I will give her iron dextran. Qualifiers: Anemia type: other cause Other causes of anemia: chronic disease, other Qualified Code(s): D63.8 - Anemia in other chronic diseases classified elsewhere (4) Acute on chronic diastolic (congestive) heart failure Current Visit: No Status: Acute Assessment and plan: January 25. Continue Imdur 120 mg daily and Toprol-XL 100 mg daily. Will add Lanoxin, lisinopril, and Bumex and monitor BN peptide. - Subjective Interval history: January 24. She complains of dyspnea but denies pain. January 25. She has no new complaints - Constitutional Vitals: Temp Pulse Resp BP Pulse Ox 98.4 F 70 16 191/80 93 01/25/17 07:31 01/25/17 07:31 01/25/17 07:31 01/25/17 07:31 01/25/17 07:31 Exam: She is sitting in bed and appears comfortable. She does not appear dyspneic. Lungs show no wheezes or crackles. Heart is regular. Extremities show 0 to trace edema bilaterally. I reviewed her medications and lab results. Internal Medicine: Result - Labs CBC & Chem 7: 01/25/17 06:32 01/25/17 06:32 Labs: Short CBC 01/24/17 01/25/17 Range/Units 07:20 06:32 WBC 12.8 H 13.2 H (4.3-11.1) K/mcL Hgb 7.4 L 6.7 L (11.5-15.4) g/dL Hct 23.9 L 20.6 L (35.3-44.9) % Plt Count 532 H 422 H (140-400) K/mcL Neutrophils # 9.3 H 9.5 H (1.6-8.9) K/mcL BMP 01/24/17 01/25/17 07:20 06:32 Sodium 130 L D 125 L Potassium 5.7 H 5.3 H Chloride 100 96 L Carbon Dioxide 25 21 BUN 32 H 31 H Creatinine 1.54 H 1.49 H Glucose 129 H 129 H Calcium 8.6 8.2 L - ABG Interpretation ABG results: ABG ABG pH 7.36 pH Units (7.32-7.45) 01/23/17 16:36 ABG pCO2 45 mmHg (35-45) 01/23/17 16:36 ABG pO2 95 mmHg (85-104) 01/23/17 16:36 ABG O2 Saturation 97 % (95-98) 01/23/17 16:36 Consult Discharge Plan - Plan Referrals: Ming Brunson MD [Primary Care Provider] - 1 week
[2017-01-25] MEDS ORDERED: IRON DEXTRAN COMPLEX IVPB ONE ×2 (09:33→10:30)
[2017-01-25] MEDS ORDERED: SODIUM CHLORIDE 0.9% IVPB ONE ×2 (09:33→10:30)
[2017-01-25] MEDS: *HR* Digoxin 0.5 MG/2 ML AMPUL IVP SCH (10:14)
[2017-01-25] MEDS: Bumetanide 1 MG TABLET PO SCH (10:14)
[2017-01-25] MEDS: D5% in Water 1,000 ML IVC SCH (10:17)
[2017-01-25] MEDS ORDERED: 0.9 % Sodium Chloride 250 ML ONE (18:22)
[2017-01-26] MEDS: cloNIDine HCl 0.1 MG TABLET PO SCH ×2 (00:03→08:20)
[2017-01-26] MEDS ORDERED: 0.9 % Sodium Chloride 250 ML ONE (03:01)
[2017-01-26 07:34] LABS: Basophils # 0.1 K/mcL (0.0-0.2); Basophils % 0.5 %; Eosinophils # 0.2 K/mcL (0.0-0.6); Hematocrit 29.3 % (35.3-44.9); Hemoglobin 9.7 g/dL (11.5-15.4); Lymphocytes # 1.3 K/mcL (0.6-4.6); Lymphocytes % 10.8 %; Mean Corpuscular HGB Conc 33.1 g/dL (31.6-35.5); Mean Corpuscular Hemoglobin 27.9 pg (28.0-33.3); Mean Corpuscular Volume 84.2 fL (83.0-100.0); Mean Platelet Volume 9.1 fL (9.4-12.4); Monocytes # 1.2 K/mcL (0.0-1.3); Monocytes % 9.8 %; Neutrophils # 9.2 K/mcL (1.6-8.9); Platelet Count 332 K/mcL (140-400); Red Blood Count 3.48 M/mcL (3.82-4.97); Red Cell Distribution Width 15.6 % (11.5-14.5); Segmented Neutrophils % 75.9 %
[2017-01-26 07:39] VITALS: BP 191/96
[2017-01-26] MEDS: Isosorbide MONOnitrate (24 HR) 60 MG TAB.ER.24H PO SCH (08:19)
[2017-01-26] MEDS: Gabapentin 300 MG CAPSULE PO SCH (08:20)
[2017-01-26] MEDS: Bumetanide 1 MG TABLET PO SCH (08:20)
[2017-01-26] MEDS: Fenofibrate 54 MG TABLET PO SCH (08:21)
[2017-01-26] MEDS: Metoprolol XL (24 HR) Succ 50 MG TAB.ER.24H PO SCH (08:21)
[2017-01-26] MEDS: *HR* Digoxin 0.5 MG/2 ML AMPUL IVP SCH (08:33)
[2017-01-26 08:46] LABS: Calcium 8.7 mg/dL (8.6-10.8); Potassium 4.4 mEq/L (3.5-4.5)
--- NOTE | 2017-01-26 09:39 | Discharge Summary ---
Date of Encounter: 01/26/17 Time of Encounter: 09:20 - Discharge Diagnosis (1) Hypoglycemia Priority: Primary Status: Resolved (2) CKD (chronic kidney disease), stage IV Priority: Secondary Status: Chronic (3) Anemia Priority: Secondary Status: Chronic Qualifiers: Anemia type: other cause Other causes of anemia: other cause, not classified Qualified Code(s): D64.89 - Other specified anemias (4) Acute on chronic diastolic (congestive) heart failure Priority: Secondary Status: Acute - Discharge Medications Prescriptions: OxyCODONE Immed Rel [Roxicodone 5 MG] 5 mg PO Q4HR PRN #20 tablet PRN Reason: Pain Digoxin [Lanoxin] 0.125 mg PO QOD 365 Days tablet Home Medications: Albuterol Sulfate [Albuterol Inhaler] 2 puff IH Q4HR PRN 11/04/14 [History] Nitroglycerin [Nitrostat] 0.4 mg SL Q5M PRN 11/04/14 [History] Albuterol Neb [Proventil Neb] 2.5 mg IH Q6H PRN 11/29/16 [History] Atorvastatin [Lipitor] 40 mg PO HS tablet 12/03/16 [Rx] Amlodipine Besylate 10 mg PO DAILY 01/17/17 [History] Bumetanide 0.5 mg PO DAILY 01/17/17 [History] Duloxetine HCl [Cymbalta] 60 mg PO DAILY 01/17/17 [History] Fenofibrate Nanocrystallized [Tricor] 145 mg PO DAILY 01/17/17 [History] Digoxin [Lanoxin] 0.125 mg PO QOD 365 Days tablet 01/26/17 [Rx] Gabapentin [Neurontin] 300 mg PO BID capsule 01/26/17 [Rx] Isosorbide MONOnitrate (24 HR) [Imdur] 120 mg PO DAILY tab.er.24h 01/26/17 [Rx] Metoprolol XL (24 HR) Succ [Toprol Xl] 100 mg PO DAILY tab.er.24h 01/26/17 [Rx] Nitroglycerin 0.4 mg SL Q5MIN PRN tab.subl 01/26/17 [Rx] OxyCODONE Immed Rel [Roxicodone 5 MG] 5 mg PO Q4HR PRN #20 tablet 01/26/17 [Rx] cloNIDine HCl [CloNIDine HCl] 0.2 mg PO Q8H tablet 01/26/17 [Rx] Allergies/Adverse Reactions: 3 Allergy/AdvReac Type Severity Reaction Status Date / Time Erythromycin Base Allergy Vomiting Verified 01/17/17 13:28 Penicillins [PCN] Allergy Rash Verified 01/17/17 13:28 codeine AdvReac Nausea Verified 01/22/17 09:39 indapamide [From Lozol] AdvReac See Verified 01/17/17 13:28 Comments Date of admission: 01/22/17 18:41 Primary care physician: NO PCP Consults: 01/23/17 09:33 Consult to Occupational Therapy [CONS] Routine Comment: Evaluate, develop and implement POC Reason for Consult: Humerus fracture Consult to Physical Therapy [CONS] Routine Comment: Evaluate, develop and implement POC Reason for Consult: Humerus fracture - Patient Status Disposition: Transfer SNF Overall status at discharge: patient is progressing back to baseline - Discharge Instructions - Diet and Activity Activity: as per physical therapy Diet: diabetic diet Hospital course: Ms. Gutiérrez is a 71 year old female who was transferred from [facility] overflow to [facility] for admission after she presented there with hypoglycemia and confusion/ hallucinations. The emergency room report from [facility] stated family observed she had been acting abnormally for the last 2-3 days with hallucinations (talking to people not in the room). Blood sugar was 43 when squad arrived. An amp of D50 was given IV and she was transported to [facility] emergency room. She was given additional IV dextrose but because of Lantus and Amaryl use it was felt best to admit her for safety and ongoing care needs. I saw the patient on January 23 and performed the history and physical. Lantus and Amaryl were discontinued and IV dextrose was given as needed to maintain normal glycemia. Her blood sugars remained satisfactory and she will remain off diabetic medications at discharge. Her mental status returned to baseline after blood sugars returned to normal range. Renal function remained stable during hospitalization with creatinine 1.49 on the day of discharge with estimated GFR of 34. Bn peptide was elevated at greater than 5000. She was started on Lanoxin and given increased dose of isosorbide. Lisinopril was discontinued because of azotemia and hyperkalemia. She will continue on Bumex. She was not dyspneic on the day of discharge. Hemoglobin decreased to 6.7 on January 25. Anemia testing showed iron 21, transferrin saturation 6%, transferrin 243, ferritin 123, B12 800, and folate 9.4. She was given 2 units packed red blood cells and an iron dextran infusion. Hemoglobin had risen to 9.7 on the day of discharge. On January 26 arrangements were complete for her to be discharged to [facility] for ongoing therapy. - Time Spent with Patient Total time spent providing and/or coordinating discharge services: - Constitutional Vitals: Temp Pulse Resp BP Pulse Ox 97.6 F 64 16 191/96 97 01/26/17 07:00 01/26/17 07:00 01/26/17 07:00 01/26/17 07:00 01/26/17 07:00
--- NOTE | 2017-01-26 09:47 | Physician Discharge Referral ---
ExtendedCare Referral Info Transfer To: [facility] Provider in Charge: Boy Provider in Charge after Transfer: PCP - Diagnosis (1) Hypoglycemia Priority: Primary Status: Resolved (2) CKD (chronic kidney disease), stage IV Priority: Secondary Status: Chronic (3) Anemia Priority: Secondary Status: Chronic (4) Acute on chronic diastolic (congestive) heart failure Priority: Secondary Status: Acute Prognosis: Fair Aware of Diagnosis: Patient Aware of Prognosis: Patient - Transfer Medications Prescriptions: OxyCODONE Immed Rel [Roxicodone 5 MG] 5 mg PO Q4HR PRN #20 tablet PRN Reason: Pain Digoxin [Lanoxin] 0.125 mg PO QOD 365 Days tablet Home Medications: Albuterol Sulfate [Albuterol Inhaler] 2 puff IH Q4HR PRN 11/04/14 [History] Nitroglycerin [Nitrostat] 0.4 mg SL Q5M PRN 11/04/14 [History] Albuterol Neb [Proventil Neb] 2.5 mg IH Q6H PRN 11/29/16 [History] Atorvastatin [Lipitor] 40 mg PO HS tablet 12/03/16 [Rx] Amlodipine Besylate 10 mg PO DAILY 01/17/17 [History] Bumetanide 0.5 mg PO DAILY 01/17/17 [History] Duloxetine HCl [Cymbalta] 60 mg PO DAILY 01/17/17 [History] Fenofibrate Nanocrystallized [Tricor] 145 mg PO DAILY 01/17/17 [History] Digoxin [Lanoxin] 0.125 mg PO QOD 365 Days tablet 01/26/17 [Rx] Gabapentin [Neurontin] 300 mg PO BID capsule 01/26/17 [Rx] Isosorbide MONOnitrate (24 HR) [Imdur] 120 mg PO DAILY tab.er.24h 01/26/17 [Rx] Metoprolol XL (24 HR) Succ [Toprol Xl] 100 mg PO DAILY tab.er.24h 01/26/17 [Rx] Nitroglycerin 0.4 mg SL Q5MIN PRN tab.subl 01/26/17 [Rx] OxyCODONE Immed Rel [Roxicodone 5 MG] 5 mg PO Q4HR PRN #20 tablet 01/26/17 [Rx] cloNIDine HCl [CloNIDine HCl] 0.2 mg PO Q8H tablet 01/26/17 [Rx] Allergies/Adverse Reactions: 3 Allergy/AdvReac Type Severity Reaction Status Date / Time Erythromycin Base Allergy Vomiting Verified 01/17/17 13:28 Penicillins [PCN] Allergy Rash Verified 01/17/17 13:28 codeine AdvReac Nausea Verified 01/22/17 09:39 indapamide [From Lozol] AdvReac See Verified 01/17/17 13:28 Comments - Respiratory Orders Smoking Cessation: Smoking cessation has been advised. For more information, call the [place] Tobacco Quit Line at 9-427-KEER-NOW. - Mobility Orders Ambulate - Rehabiliation Orders Rehab Potential: Fair Rehab Orders: Evaluation for Physical Therapy, Evaluation for Occupational Therapy - Diet Orders No Concentrated Sweets CERTIFICATION: I certify that the transfer of the above named patient to an Extended Care Facility is necessary for the continuing treatment of the diagnosis listed. The above information is true and accurate reflection of patient's current condition. Confidential - Redisclosure prohibited without a patient's written consent.
[2017-01-26] MEDS: *HR* OxyCODONE Immed Rel 5 MG TABLET PO PRN (10:05)
== END 2017-01-26 10:45 | DRG 637 ==
LOC: INPPIK 18:41
PROVIDERS: ADMIT Internal Medicine; ATTEND Internal Medicine